=== PATIENT | female | born 1950 | race Caucasian/White ===

== ENCOUNTER → 2017-04-11 | Outpatient (CLI) | payer MEDICARE | END | disposition home or self-care (01) | LOC: CFH 10:24 | PROVIDERS: ATTEND Internal Medicine | DX: K44.9 Diaphragmatic hernia without obstruction or gangrene (principal); J45.909 Unspecified asthma, uncomplicated; Z90.49 Acquired absence of other specified parts of digestive tract; I51.7 Cardiomegaly | CPT/HCPCS: 71250 ==

== ENCOUNTER → 2017-05-02 | Outpatient (CLI) | payer MEDICARE | LOC: CFH 15:40 | PROVIDERS: ATTEND Orthopaedic Surgery | DX: M75.51 Bursitis of right shoulder (principal); M19.011 Primary osteoarthritis, right shoulder ==

== ENCOUNTER → 2017-05-12 | Outpatient (CLI) | payer MEDICARE | END | disposition home or self-care (01) | LOC: CFH 11:38 | PROVIDERS: ATTEND Internal Medicine | DX: Z12.31 Encounter for screening mammogram for malignant neoplasm of breast (principal) | CPT/HCPCS: 77067 ==

== ENCOUNTER 2017-07-01 10:31 | Emergency (ER) | payer MEDICARE ==
[~2017-07-01] VITALS: Ht 160 cm; Wt 110.0 kg
[2017-07-01] MEDS ORDERED: CHOL100011 PO (12:32)
[2017-07-01] MEDS ORDERED: SIMV20TA3 PO (12:32)
[2017-07-01] MEDS ORDERED: METF1000 PO (12:32)
[2017-07-01] MEDS ORDERED: ENAL10TA PO (12:32)
[2017-07-01] MEDS ORDERED: OXYC5CAP2 PO (12:32)
[2017-07-01] MEDS ORDERED: QUET50TA PO (12:32)
[2017-07-01] MEDS ORDERED: OMEP-110 PO (12:32)
[2017-07-01] MEDS ORDERED: CITA40TA5 PO (12:32)
[2017-07-01] MEDS ORDERED: TRIA1CAP3 PO (12:32)
[2017-07-01] MEDS ORDERED: METF500T4 PO (12:32)
[2017-07-01] MEDS ORDERED: TOPI25TA8 PO (12:32)
[2017-07-01] MEDS ORDERED: TRAZ100T15 PO (12:32)
[2017-07-01] MEDS ORDERED: LEVO112T4 PO (12:32)
[2017-07-01 12:52] LABS: BASOPHILS # (AUTO) 0.09 x10^3/uL (0-0.1); BASOPHILS % (AUTO) 1 % (0-1); EOSINOPHILS # (AUTO) 0.22 x10^3/uL (0-0.4); EOSINOPHILS % (AUTO) 2 % (1-7); LYMPHOCYTES # (AUTO) 2.77 x10^3/uL (1-3.4); LYMPHOCYTES % (AUTO) 26 % (22-44); MD NO; MEAN CORPUSCULAR HEMOGLOBIN 26.7 pg (27.0-34.8); MEAN CORPUSCULAR HGB CONC 32.6 g/dL (32.4-35.8); MEAN CORPUSCULAR VOLUME 81.9 fL (80-100); MEAN PLATELET VOLUME 6.9 fL (7.4-10.4); MONOCYTES # (AUTO) 0.85 x10^3/uL (0.2-0.8); MONOCYTES % (AUTO) 8 % (2-9); NEUTROPHILS # (AUTO) 6.62 x10^3/uL (1.8-6.8); NEUTROPHILS % (AUTO) 63 % (42-75); PLATELET COUNT 339 x10^3/uL (130-400); RED BLOOD COUNT 4.81 x10^6/uL (3.82-5.3); RED CELL DISTRIBUTION WIDTH 15.6 % (9.6-15.2)
[2017-07-01] MEDS ORDERED: MECLIZINE CHEWABLE 25 MG TAB ONE (12:53)
[2017-07-01] MEDS ORDERED: ONDANSETRON 2MG/ML, 2ML ONE (12:53)
[2017-07-01] MEDS ORDERED: ONDANSETRON 2MG/ML, 2ML IVPush ONE (13:00)
[2017-07-01] MEDS ORDERED: MECLIZINE CHEWABLE 25 MG TAB PO ONE (13:00)
[2017-07-01] MEDS ORDERED: SODIUM CHLORIDE 0.9% 1,000ML IVBOLUS ONE (13:00)
[2017-07-01 13:05] LABS: ALBUMIN 3.6 g/dL (3.4-5.0); ANION GAP 9 mmol/L (5-15); CALCIUM 9.2 mg/dL (8.5-10.1); CHLORIDE 108 mmol/L (98-107)
[2017-07-01 13:08] LABS: ALANINE AMINOTRANSFERASE 15 U/L (12-78); ALKALINE PHOSPHATASE 79 U/L (45-117); BILIRUBIN,TOTAL 0.6 mg/dL (0.2-1.0); CREATININE 1.13 mg/dL (0.55-1.02); TOTAL PROTEIN 7.5 g/dL (6.4-8.2)
[2017-07-01 13:51] VITALS: BP 126/79
== END 2017-07-01 15:11 | disposition home or self-care (01) ==
LOC: ED 12:48
DX: H83.02 Labyrinthitis, left ear (principal); R42 Dizziness and giddiness; I10 Essential (primary) hypertension; K21.9 Gastro-esophageal reflux disease without esophagitis; E05.90 Thyrotoxicosis, unspecified without thyrotoxic crisis or storm; E11.9 Type 2 diabetes mellitus without complications
CPT/HCPCS: 36415; 73020; 80053; 85025; 93005; 96361; 96374; 99285; J2405; J7030

== ENCOUNTER 2019-03-17 18:29 | Emergency (ER) | payer MEDICARE ==
[~2019-03-17] VITALS: Ht 160 cm; Wt 110.0 kg
[~2019-03-17 18:29] MED LIST: CHOL100011 PO; CITA40TA5 PO; ENAL10TA PO; LEVO112T4 PO; METF1000 PO; METF500T17 PO; OMEP-110 PO; OXYC5CAP2 PO; QUET50TA PO; SIMV20TA3 PO; TOPI25TA8 PO; TRAZ-137 PO; TRIA1CAP3 PO
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
--- NOTE | 2019-03-17 19:25 | NUR ---
RECEIVED REPORT FROM QUE GOMEZ. JOSE IS RESTING IN BED. WARM BLANKET PROVIDED. CALL LIGHT WITHIN REACH.
[2019-03-17] MEDS ORDERED: LIDOCAINE 1%-EPI 1:100K, 20ML ONE (19:48)
[2019-03-17] MEDS ORDERED: LIDOCAINE 1%-EPI 1:100K, 20ML SQ ONE (20:00)
[2019-03-17 20:43] VITALS: BP 116/62
== END 2019-03-17 20:45 | disposition home or self-care (01) ==
LOC: ED 20:30
DX: S01.01XA Laceration without foreign body of scalp, initial encounter (principal); M54.2 Cervicalgia; M25.531 Pain in right wrist; R51 Headache; I10 Essential (primary) hypertension; E11.9 Type 2 diabetes mellitus without complications; E05.90 Thyrotoxicosis, unspecified without thyrotoxic crisis or storm; K21.9 Gastro-esophageal reflux disease without esophagitis; W18.00XA Striking against unspecified object with subsequent fall, initial encounter; Y93.89 Activity, other specified; Y92.009 Unspecified place in unspecified non-institutional (private) residence as the place of occurrence of the external cause; Y99.8 Other external cause status
CPT/HCPCS: 12002; 70450; 72125; 73110; 99284; J3490

== ENCOUNTER 2019-05-14 13:56 | Outpatient (CLI) | payer MEDICARE | END 2019-05-14 23:59 | disposition home or self-care (01) | LOC: CFH 13:56 | PROVIDERS: ATTEND Nurse Practitioner Gerontology | DX: M47.816 Spondylosis without myelopathy or radiculopathy, lumbar region (principal); Z90.49 Acquired absence of other specified parts of digestive tract | CPT/HCPCS: 74018 ==

== ENCOUNTER → 2020-03-02 | Outpatient (CLI) | payer MEDICARE ==
[~2020-03-02] MED LIST changes: -ENAL10TA PO; +ENAL10TA9 PO; +SIMV20TA19 PO; -SIMV20TA3 PO; -TRAZ-137 PO; +TRAZ-175 PO
== END | disposition home or self-care (01) ==
LOC: CFH 14:10
DX: Z12.31 Encounter for screening mammogram for malignant neoplasm of breast (principal)
CPT/HCPCS: 77063; 77067